=== PATIENT | male | born 1975 | race Caucasian/White ===

== ENCOUNTER 2025-01-15 05:46 | Emergency (ER) | payer BC ==
[~2025-01-15] VITALS: Ht 185.4 cm; Wt 120.2 kg
[2025-01-15] MEDS ORDERED: Dexamethasone Sod Phos 10 MG/ML 1ML VIAL IV ONE (06:10)
[2025-01-15] MEDS ORDERED: Ketorolac Tromethamine 30mg Vial IV ONE (06:10)
[2025-01-15] MEDS ORDERED: Robaxin750 MG PO (07:39)
[2025-01-15] MEDS ORDERED: PRED20 PO (07:39)
[2025-01-15] MEDS ORDERED: IBUP800 PO (07:39)
== END 2025-01-15 07:48 | disposition home or self-care (01) ==
LOC: ER 05:46
DX: M43.6 Torticollis (principal)
CPT/HCPCS: 70491; 96374-59; 96375-59; 99283-25; J1100; J1885; Q9967